=== PATIENT | female | born 1960 | race Hispanic/Latino ===

== ENCOUNTER 2023-12-09 19:08 | Emergency (ER) | payer OTHER, MEDICARE ==
[~2023-12-09] VITALS: Ht 152.4 cm; Wt 81.6 kg
[2023-12-09] MEDS: KETOROLAC 30MG VIAL (30MG/ML) IVP ONE (19:43)
[2023-12-09] MEDS: 0.9%NACL 1000ML 1,000 ML IV ONE (19:43)
[2023-12-09 19:46] LABS: BASOPHILS # (AUTO) 0.07 K/uL (0.00-0.20); BASOPHILS % (AUTO) 0.8 % (0.0-5.0); EOSINOPHILS # (AUTO) 0.37 K/uL (0.00-0.70); HEMATOCRIT 41.2 % (36-48); IMMATURE GRANULOCYTE ABSOLUTE 0.04 K/uL (0-1); LYMPHOCYTES # (AUTO) 3.3 K/uL (1.0-4.8); LYMPHOCYTES % (AUTO) 36.3 % (21.0-51.0); MEAN CORPUSCULAR HEMOGLOBIN 31.8 pg (27.0-33.0); MEAN CORPUSCULAR HGB CONC 33.3 g/dL (32.0-36.0); MEAN CORPUSCULAR VOLUME 95.6 fL (79-99); MONOCYTES # (AUTO) 0.8 K/uL (0.1-1.0); NEUTROPHILS # (AUTO) 4.6 K/uL (1.8-7.7); NEUTROPHILS % (AUTO) 49.5 % (40.0-77.0); PLATELET COUNT (AUTO) 251 K/uL (130-400); RED BLOOD CELL COUNT(AUTO) 4.31 MIL/uL (4.00-5.50); WHITE BLOOD COUNT (AUTO) 9.2 K/uL (4.8-10.8)
[2023-12-09 19:55] LABS: APPEARANCE,URINE CLEAR (CLEAR); BILIRUBIN,URINE NEGATIVE (NEGATIVE); COLOR,URINE YELLOW (YELLOW); GLUCOSE, URINE (UA) NEGATIVE (NEGATIVE); KETONES,URINE NEGATIVE (NEGATIVE); LEUKOCYTE ESTERASE ,URINE NEGATIVE Leu/uL (NEGATIVE); NITRATE,URINE NEGATIVE (NEGATIVE); OCCULT BLOOD,URINE NEGATIVE (NEGATIVE); PH,URINE 6.5 (5.0-8.0); PROTEIN,URINE NEGATIVE (NEGATIVE); UROBILINOGEN,URINE 0.2 mg/dL (0.2-1.0)
[2023-12-09 19:56] LABS: ADD UA MICROSCOPIC NO
[2023-12-09 19:59] LABS: CREATININE 0.9 mg/dL (0.5-1.0); POTASSIUM 3.9 mmol/L (3.5-5.1)
[2023-12-09 20:04] LABS: ALBUMIN 3.4 g/dL (3.5-5.0); BILIRUBIN,TOTAL 0.3 mg/dL (0.2-1.0); TOTAL PROTEIN, SERUM 7.7 g/dL (6.0-8.3)
[2023-12-09] MEDS: ONDANSETRON 4MG INJ IVP ONE (20:13)
[2023-12-09] MEDS: FAMOTIDINE 20MG VIAL IV ONE (20:13)
[2023-12-09] MEDS ORDERED: FAMOTIDINE 20MG VIAL IV ONE (20:30)
[2023-12-09] MEDS ORDERED: ONDANSETRON 4MG INJ IVP ONE (20:30)
[2023-12-09] MEDS ORDERED: ONDA-243 PO (21:16)
[2023-12-09] MEDS ORDERED: IBUP-2077 PO (21:16)
[2023-12-09 21:43] VITALS: BP 138/86; PULSE 69; RESP 18; O2SAT 99
== END 2023-12-09 21:46 | disposition home or self-care (01) ==
LOC: EDH 19:08
DX: K80.20 Calculus of gallbladder without cholecystitis without obstruction (principal); K80.50 Calculus of bile duct without cholangitis or cholecystitis without obstruction; K76.0 Fatty (change of) liver, not elsewhere classified; R94.5 Abnormal results of liver function studies; E11.9 Type 2 diabetes mellitus without complications
CPT/HCPCS: 99285; 96374; 76705; 96361; 96375; 80053; 83690; 85025; 81003; 36415; J3490; J7030; J2405; J1885